=== PATIENT | male | born 1995 | race Caucasian/White ===

== ENCOUNTER 2022-10-09 00:30 | Emergency (ER) | payer OTHER, SELFPAY ==
[2022-10-09 00:37] VITALS: BP 154/99; PULSE 69; RESP 14; TEMP 37; O2SAT 98; BMI 33.0
[2022-10-09 01:05] VITALS: BP 141/103; PULSE 78; RESP 16; O2SAT 98
--- NOTE | 2022-10-09 01:11 | PC.NURSE ---
Pt presents to ED c/o sore throat, N/V, fever, and general malaise for the past 3-4 days. Pt states that his has been experiencing similar s/s and does not want to get his coworkers sick today. Requires work note. Pt states that he has had a fever of 101 F the past couple of days. Upon assessment in ED oral temperature revealed 98.8 F. Pt resting comfortably in bed.
--- NOTE | 2022-10-09 01:20 | ED_ITS ---
HPI - Fever General: Chief Complaint: Fever Stated Complaint: fever,n/v, throat pain Time Seen by Provider: 10/09/22 00:42 History of Present Illness: Patient is in for sore throat x3 days. He reports that today he started having elevated fevers. He does report some nasal congestion and drainage. He states that his child has recently been ill but has not been taken to the doctor because he did not get high fever. Patient reports that today he generally feels terrible with a high fever, body aches, chills. He does report a negative at home COVID test Associated symptoms: Reports chills, headache(s) and nasal congestion; Deny abdominal pain, flank pain, chest pain, dysuria, nausea or vomiting Review of Systems Const: Reports: fever(s), chills, body aches and fatigue ENMT: Reports: nasal discharge, nasal congestion and post nasal drip Card: Denies: chest pain or palpitations Resp: Denies: dyspnea, productive cough or non-productive cough GI: Denies: abdominal pain, nausea or vomiting : Denies: flank pain, dysuria or urinary frequency Neuro: Reports: headache(s); Denies: numbness in extremities, weakness in extremities, sensory changes or lack of coordination Physical Exam Const: COMMON NORMALS: no acute distress, patient oriented x3 and alert HENMT: COMMON NORMALS: TM's normal bilaterally NOSE: Nasal discharge present clear TYMPANIC MEMBRANE: TM's normal bilaterally THROAT: uvula midline, posterior oropharynx abnormal erythema and postnasal drainage Neck/C-Spine: COMMON NORMALS: no JVD Resp: COMMON NORMALS: normal respiratory effort, No use of accessory muscles and clear to auscultation bilaterally AUSCULTATION: clear to auscultation bilaterally Cardio: COMMON NORMALS: no JVD, regular rate, regular rhythm, S1 normal heart sound present, S2 normal heart sound present and No murmurs present (Cardio) RATE: regular rate RHYTHM: regular rhythm HEART SOUNDS: S1 normal heart sound present and S2 normal heart sound present Neuro: COMMON NORMALS: patient oriented x3, CN's II-XII intact bilaterally and moves all extremities SENSORIUM/ORIENTATION: Yes alert Course Vital Signs: Vital signs: Vital Signs Temperature 98.6 F 10/09/22 00:37 Pulse Rate 78 10/09/22 01:05 Respiratory Rate 16 10/09/22 01:05 Blood Pressure 141/103 10/09/22 01:05 Pulse Oximetry 98 10/09/22 01:05 Oxygen Delivery Me thod Room Air 10/09/22 00:37 MDM - Fever Medical Decision Making Consider viral upper respiratory infection, strep pharyngitis, influenza Test patient for strep and flu?negative Treat patient for upper respiratory viral infection. Discussed conservative treatments at home. Provided patient with a note for work since he has been febrile. Advised him to follow-up with primary care provider. Return to the ER as needed for new or worsening symptom Lab Data Laboratory Results Influenza Type A Ag negative (Negative) 10/09/22 01:07 Influenza Type B Ag negative (Negative) 10/09/22 01:07 Group A Strep Rapid Negative (Negative) 10/09/22 01:07 Discharge Plan Discharge Patient Disposition: Home Clinical Impression: Upper respiratory infection Condition: Stable Discharge Orders: Discharge ED (Routine); Ordered 10/09/22 Ordered By: Monik Mina Discharge Diet: Usual diet Discharge Activity: Resume usual activity Patient Instructions: Upper Respiratory Infection - Adult Activity Restrictions/Additional Instructions: I recommend [id number] cold and sinus medication. Make sure that you are staying well-hydrated. Zyrtec and Flonase can definitely help control postnasal drainage. Follow-up with primary care provider as needed. Return to the ER for new or worsening symptoms Stand Alone Forms: Work/School Release Coding Level of Care Code ED Lead Radiologic Technologist for Abelino Razo
[2022-10-09 01:27] LABS: Rapid Strep A Test Negative (Negative)
[2022-10-09 01:30] LABS: Influenza A by IFA negative (Negative); Influenza B by IFA negative (Negative)
[2022-10-09 01:44] VITALS: BP 149/117; PULSE 75; RESP 16; O2SAT 96
--- NOTE | 2022-10-14 14:43 | DCPLANNER ---
TCM called patient due to no primary care physician - no answer at this time.
== END 2022-10-09 01:46 | disposition home or self-care (01) ==
PROVIDERS: Emergency Provider Nurse Practitioner Family
DX: J06.9 Acute upper respiratory infection, unspecified (principal)
CPT/HCPCS: 87081; 87804; 87880; 99283

== ENCOUNTER 2022-11-25 07:08 | Outpatient (CLI) | payer OTHER, SELFPAY ==
--- NOTE | 2022-11-25 07:15 | MR_ITS ---
WS: [id number] MRI RIGHT KNEE NONCONTRAST TECHNIQUE: Axial PD, coronal PD fat sat, coronal PD, sagittal PD, and sagittal PD fat-sat images obta ined. CLINICAL INFORMATION: right knee meniscus tear COMPARISON: None. FINDINGS: Distal quadriceps and patella tendons are intact. Hypertrophic patella. Normal ACL and PCL. Medial an d lateral meniscus are normal in appearance. No acute appearing meniscal tears. No significant chondromalacia patella. Normal patella. Normal popliteal fossa. Medial and lateral col lateral ligaments are normal in appearance. Normal femoral condyles and tibial plateau. No bone marro w edema. MR/MR knee RT wo con* [id number] IMPRESSION: 1. Normal ACL and PCL. 2. Normal patella. 3. No acute appearing meniscal tears. 4. No acute RIGHT knee findings. Outbridge grading: grade I: focal areas of hyperintensity with normal contour
--- NOTE | 2022-11-25 08:00 | MR_ITS ---
WS: [id number] MRI LEFT KNEE NONCONTRAST TECHNIQUE: Axial PD, coronal PD fat sat, coronal PD, sagittal PD, and sagittal PD fat-sat images obta ined. CLINICAL INFORMATION: left knee meniscus tear COMPARISON: None. FINDINGS: Distal quadriceps and patella tendons are intact. Hypertrophic patella. Tiny joint effusion. Normal A CL and PCL. Medial and lateral meniscus are normal in appearance. No acute meniscal tears. Normal popliteal fossa. Medial and lateral collateral ligaments are normal in appearance. Normal popl iteus. No significant chondromalacia patella. No bone marrow edema. No other acute findings. MR/MR knee LT wo con* [id number] IMPRESSION: 1. Normal ACL and PCL. 2. No acute appearing meniscal tears. 3. Tiny joint effusion. 4. Medial and lateral collateral ligaments are normal in appearance. Outbridge grading:
== END 2022-11-25 07:09 | disposition home or self-care (01) ==
PROVIDERS: PCP Family Medicine; Visit Provider Family Medicine
DX: S83.249A Other tear of medial meniscus, current injury, unspecified knee, initial encounter (principal); X58.XXXA Exposure to other specified factors, initial encounter
CPT/HCPCS: 73721; 80053; 80061; 85025